=== PATIENT | male | born 1970 | race African-American/Black ===

== ENCOUNTER 2022-07-09 14:42 | Inpatient (IN) | payer OTHER ==
[2022-07-09 16:11] VITALS: BMI 21.8
[2022-07-09] MEDS ORDERED: IBUPROFEN 600 MG TABLET (FP) PO PRN (19:16)
[2022-07-09] MEDS ORDERED: BISMUTH SUBSALICYLATE 524 MG/30 ML PO PRN (19:16)
[2022-07-09] MEDS ORDERED: ACETAMINOPHEN 325 MG TABLET (FP) PO PRN ×2 (19:16)
[2022-07-09] MEDS ORDERED: LOPERAMIDE HCL 2 MG CAPSULE PO PRN (19:16)
[2022-07-09] MEDS ORDERED: hydrOXYzine PAMOATE 25 MG CAPSULE (FP) PO PRN (19:16)
[2022-07-09] MEDS ORDERED: MAGNESIUM CITRATE 300 ML BOTTLE PO PRN (19:16)
[2022-07-09] MEDS ORDERED: DICYCLOMINE HCL 10 MG CAPSULE PO PRN (19:16)
[2022-07-09] MEDS ORDERED: guaiFENesin 200 MG/10 ML 10 ML UNIT-DOSE CUPS PO PRN (19:16)
[2022-07-09] MEDS ORDERED: MELATONIN 5 MG TABLETS PO PRN (19:16)
[2022-07-09] MEDS ORDERED: BENZOCAINE/MENTHOL (CHLORASEPTIC ) LOZENGE MM PRN (19:16)
[2022-07-09] MEDS ORDERED: MAGNESIUM HYDROX 2400MG/30ML ORAL SUSPENSION 30 ML CUP PO PRN (19:16)
[2022-07-09] MEDS ORDERED: METHOCARBAMOL 500 MG TABLET PO PRN (19:16)
[2022-07-09] MEDS ORDERED: MAG HYDROX/AL HYDROX/SIMETH 30 ML UNIT-DOSE CUP PO PRN (19:16)
[2022-07-09] MEDS ORDERED: P-EPHED 60MG/TRIPROLIDI 2.5MG TABLET PO PRN (19:16)
[2022-07-09] MEDS ORDERED: NICOTINE 10 MG CARTRIDGE (INHALER) IH PRN (19:16)
[2022-07-09] MEDS ORDERED: IBUPROFEN 400 MG TABLET (FP) PO PRN (19:16)
[2022-07-09] MEDS ORDERED: ONDANSETRON *ODT* 4 MG TABLET SL PRN (19:16)
[2022-07-09] MEDS ORDERED: NICOTINE POLACRILEX 2 MG GUM BUC PRN (19:16)
[2022-07-09] MEDS ORDERED: ALBUTEROL SO4 HFA INHALER IH PRN (19:30)
[2022-07-10] MEDS: THIAMINE HCL 100 MG TABLET (FP) PO SCH ×2 (00:54→22:29)
[2022-07-10] MEDS: PRENATAL VITAMINS W/ FOLIC ACID TABLET (FP) PO SCH (10:57)
[2022-07-10] MEDS ORDERED: FLU VACC QS2022-23(6MOS UP)/PF 60 MCG/0.5 ML SYRINGE IM ONE (11:55)
[2022-07-10] MEDS: LOSARTAN POTASSIUM 50 MG TABLET PO SCH (12:10)
[2022-07-10] MEDS: PANTOPRAZOLE 40 MG TABLET PO SCH (12:10)
[2022-07-10] MEDS ORDERED: GABAPENTIN 300 MG CAPSULE PO SCH (14:00)
[2022-07-10 14:15] LABS: HEMATOCRIT 38.5 % (35.4-49); MCH 32.6 pg (25.7-33.7); MCHC 33.7 g/dl (32.0-35.9); MEAN CELL VOLUME 96.7 fl (80-96); PLATELET COUNT 249 10^3/uL (134-434); RBC 3.98 M/mm3 (4.00-5.60); RDW 12.2 % (11.9-15.9); WHITE BLOOD COUNT 5.4 K/mm3 (4.0-10.0)
[2022-07-10 14:21] LABS: BLOOD UREA NITROGEN 8.7 mg/dL (7-18); CALCIUM 8.2 mg/dL (8.5-10.1)
[2022-07-10 14:22] LABS: ALBUMIN 3.2 g/dl (3.4-5.0)
[2022-07-10 14:25] LABS: CREATININE 1.1 mg/dL (0.55-1.3)
[2022-07-10 14:26] LABS: BILIRUBIN,TOTAL 0.6 mg/dL (0.2-1)
[2022-07-10 15:13] LABS: HIV INTERPRETATION NEGATIVE (NEGATIVE)
[2022-07-10] MEDS: GABAPENTIN 100 MG CAPSULE PO SCH (22:31)
[2022-07-10] MEDS: TOPIRAMATE 25 MG TABLET PO SCH (22:42)
[2022-07-11] MEDS: GABAPENTIN 100 MG CAPSULE PO SCH ×2 (05:08→13:19)
[2022-07-11] MEDS: PANTOPRAZOLE 40 MG TABLET PO SCH (11:01)
[2022-07-11] MEDS: PRENATAL VITAMINS W/ FOLIC ACID TABLET (FP) PO SCH (11:01)
[2022-07-11] MEDS: LOSARTAN POTASSIUM 50 MG TABLET PO SCH (11:01)
[2022-07-11] MEDS: TOPIRAMATE 25 MG TABLET PO SCH (11:01)
[2022-07-11 13:09] VITALS: BP 155/85; PULSE 100; RESP 18; TEMP 98
== END 2022-07-11 15:35 | disposition other institution (70) | DRG 897 ==
LOC: YASAS 14:42 → Y3N 23:01
PROVIDERS: ADMIT Allergy & Immunology; ATTEND Surgery
PROC: HZ2ZZZZ Detoxification Services for Substance Abuse Treatment (ICD-10-PCS; principal; 2022-07-09)
DX: F10.230 Alcohol dependence with withdrawal, uncomplicated (principal); F14.20 Cocaine dependence, uncomplicated; F13.20 Sedative, hypnotic or anxiolytic dependence, uncomplicated; F17.210 Nicotine dependence, cigarettes, uncomplicated; F25.9 Schizoaffective disorder, unspecified; I10 Essential (primary) hypertension; J44.9 Chronic obstructive pulmonary disease, unspecified; N40.0 Benign prostatic hyperplasia without lower urinary tract symptoms; K21.9 Gastro-esophageal reflux disease without esophagitis; M54.50 Low back pain, unspecified; G89.29 Other chronic pain; Z62.810 Personal history of physical and sexual abuse in childhood; Z86.2 Personal history of diseases of the blood and blood-forming organs and certain disorders involving the immune mechanism
CPT/HCPCS: 36415; 80053; 85027; 86780; 87389; C9803-CS; G0008; Q2036; U0003; U0005